=== PATIENT | female | born 1985 | race Caucasian/White ===

== ENCOUNTER 2019-01-11 15:20 | Inpatient (IN) | payer OTHER ==
[2019-01-11] VITALS (31 sets, daily range): BP systolic 103–156; BP diastolic 57–75
[~2019-01-11] VITALS: Ht 160 cm; Wt 82.5 kg
[2019-01-11] MEDS ORDERED: PRENTAB9 PO (15:43)
[2019-01-11] MEDS ORDERED: LACTATED RINGER'S 1000 ML IV STA (16:34)
[2019-01-11] MEDS ORDERED: LR 1,000 ML IV SCH (16:34)
[2019-01-11] MEDS ORDERED: PENICILLIN G POTASSIUM IV 5 MU in D5W MINI-BAG PLUS 100 ML IV STA (16:34)
--- NOTE | 2019-01-11 16:47 | HPEPDOC ---
Obstetrical History & Physical General Date of Admission Jan 11, 2019 at 16:33 History of Present Illness 33 y/o at 37+2 with LOF at 1100-noon this AM. Small amt fluid with mvmt /standing. No VB. Reg ctx's. Pos FM. Preg c/b AMA, Rh Neg (rhogam at 32 wks), h/o macrosomia 2013 9 lb 9 oz. Chief Complaint: Contractions, term, LOF, term Information Provided By: Patient Care Care: Good Care Dating Final EDC by: LMP, 1st trimester (US) Past Medical History Past Obstetrical History : Past Obstetrical History: Multigravida ( X3, 7 lb 11 oz 2000, 8 lb 7 oz 2007, 9 lb 9 oz 2013) Type of Delivery: Spontaneous Vaginal Del. (x3, no problems with all 3) SENIOR SUPPORT ENGINEER History: No pertinent history Past Medical History Surgical History: [place]ckley teeth Family History Significant Family History: No pertinent family hx Social History Marital Status: Family situation: Spouse/partner deployed Psychosocial History: No pertinent psych hx * Smoker: non-smoker Alcohol: Denies Drugs: denies Abuse Violence Screening Have you been hit/kicked/slapp: No Have you been sexually assault: No Imunizations Tdap status: current Influenza Status: current Allergies Coded Allergies: No Known Allergies (Unverified , 01/11/19) Medications Scheduled Multivitamins/ ( 27-0.8 mg) 1 Tab Tab, 1 TAB PO DAILY Physical Examination Physical Examination GENERAL: Alert and oriented times three. ABDOMEN: Gravid and non-tender to touch. EFW 8.5-9 lbs FETUS: Is vertex (VTX) by sterile vaginal examination (SVE), /-2 at 1630, large gush with cx check, clear amniotic fluid EXTREMITIES: No edema. Vital Signs/I&O Vital Signs Date Time Temp Pulse Resp B/P (MAP) Pulse Ox O2 Delivery O2 Flow Rate FiO2 01/11/19 15:41 98.2 90 18 124/75 (91) Laboratory Data Urine Culture: No Growth Pertinent Laboratoy Data Blood Type: O- RBC Antibody Screen: Negative HIV: Negative Hepatitis B: Negative Hepatitis C: Unknown Rapid Plasma Reagin: Nonreactive Rubella: Immune Varicella: Immune Chlamydia/Gonorrhea: Negative Group B Streptococcus: Positive Quad Screen Test: Declined Cystic Fibrosis: Negative Glucose Tolerance Test: 128 Anatomy Ultrasound Placenta Location: Anterior Normal Anatomy: Yes Placenta Previa: No Assessment Variability: Moderate Accelerations: Positive Decelerations: Variable (x1) Tocometer Contractions: Yes Frequency: regular Duration: greater than 60 seconds Strength: palpated as moderate Assessment/Plan Assessment SROM with GBS pos. Plan Admit and orient. Audio Specialist and consent. Diet: clears Group B Streptococcus (GBS) pos, PCN 5/2.5 Labs and intravenous (IV) per unit protocol. Counseled on Pitocin as needed Lactated Ringers (LR): Bolus 1000 mL, then at 125 mL/hr. Anticipate normal spontaneous delivery () C-S as appropriate. Sessions MD BEAL,ANATOLIY Tang MD Jan 11, 2019 16:47
[2019-01-11 17:00] LABS: HEMATOCRIT 40.8 % (36.0-47.0); MEAN CORPUSCULAR HEMOGLOBIN 31.5 pg (27.0-33.0); MEAN CORPUSCULAR HGB CONC 34.3 g/dl (32.0-36.5); MEAN CORPUSCULAR VOLUME 91.9 fl (80.0-96.0); PLATELET COUNT, AUTOMATED 153 10^3/uL (150-450); RED BLOOD COUNT 4.44 10^6/uL (4.00-5.40); WHITE BLOOD COUNT 14.3 10^3/uL (4.0-10.0)
[2019-01-11] MEDS ORDERED: FENTANYL 2MCG/ML ROPIVACAINE 0.2% IN 0.9% NACL 100ML IVBAG As Ordered ONE (17:52)
[2019-01-11] MEDS ORDERED: EPIDURAL/PCA KEYS XX PRN (18:45)
[2019-01-11] MEDS ORDERED: NALOXONE INJ 0.4 MG/1 ML VIAL (J2310) IV PRN (18:45)
[2019-01-11] MEDS ORDERED: FENTANYL/ROPIVACAINE/NACL BAG 100 ML EPIDURAL SCH (18:45)
[2019-01-11] MEDS ORDERED: EPIDURAL COMMENT XX SCH (18:45)
[2019-01-11] MEDS ORDERED: LACTATED RINGER'S 1000 ML IV PRN (18:45)
[2019-01-11] MEDS ORDERED: REFRIGERATOR IV KEYS XX PRN (18:45)
[2019-01-11] MEDS ORDERED: ePHEDrine SULFATE 25 MG/5 ML(5MG/ML) SYRINGE IV PRN (18:45)
[2019-01-11] MEDS ORDERED: ONDANSETRON 4MG/2ML VIAL (J2405) IV PRN (18:45)
[2019-01-11] MEDS ORDERED: diphenhydrAMINE INJ 50MG/ML VIAL (J1200) IV PRN (18:45)
[2019-01-11] MEDS ORDERED: PENICILLIN G POTASSIUM IV 2.5 MU in APPROPRIATE DILUENT 1 EA IV SCH (21:00)
[2019-01-11] MEDS ORDERED: OXYTOCIN 30 UNITS IN 0.9% NaCl 500ML IV BAG (J2590) As Ordered ONE (22:08)
[2019-01-11] MEDS ORDERED: OXYTOCIN DRIP 30 UNITS in APPROPRIATE DILUENT 1 EA IV SCH (22:35)
--- NOTE | 2019-01-11 22:43 | DNPDOC ---
[facility] Delivery Note Delivery Note DATE OF DELIVERY: 01/11/2019 PREDELIVERY DIAGNOSIS: 37w5d SROM POST DELIVERY DIAGNOSIS: Delivered. PROCEDURE: Spontaneous vaginal delivery AUDIOVISUAL AIDS TECHNICIAN: Dr. Analy MD ANESTHESIA: epidural ESTIMATED BLOOD LOSS: 250 mL. FINDINGS: 8 pound 0 ounce (3620g) male infant, Score 9/9 DELIVERY SUMMARY: Erika is a 33yo [id number] s/p uncomplicated at 37w5d after presenting with SROM earlier in the afternoon, delivering at 22:16 on 01/11/19. She was admitted at 3cm, progressed without need for any pitocin, received an epidural, and at C/C/0 began pushing. With two sets of pushes, head delivered OA, restituted WATSON. Left anterior shoulder delivered followed by posterior shoulder and corpus. immediately had spontaneous cry and vigorous, placed on maternal abdomen, nose and mouth suctioned with bulb suction, apgars 9/9. Inspection of perineum revealed very small left labial abrasion- one suture placed with 3-0 vicryl to reapproximate with hemostasis noted. Umbilical cord clamped x2 and cut, cord blood obtained for MBT O negative. With fundal massage and traction on the cord, placenta delivered spontaneously and intact with 3 vessel centrally inserted cord. Bimanual massage performed and IV pitocin given per protocol, fundus then firm at u-2cm with hemostasis. 800mcg cytotec placed rectally for prophylaxis. All counts correct x2. Mom and infant were doing well when I left the room. MD Analy Rosario Katrina D MD Jan 11, 2019 22:43
[2019-01-11] MEDS ORDERED: DIBUCAINE 1% OINTMENT 30GM TOP PRN (22:45)
[2019-01-11] MEDS ORDERED: MEASLES,MUMPS,RUBELLA VACCINE INJ (MMR-II) (90707) SC SCH (22:45)
[2019-01-11] MEDS ORDERED: RHOGAM 300 MCG (1500 IU) INJ (J2790) IM SCH (22:45)
[2019-01-11] MEDS ORDERED: DOCUSATE SODIUM 100 MG CAP PO PRN (22:45)
[2019-01-11] MEDS ORDERED: ACETAMINOPHEN 500 MG TAB PO PRN (22:45)
[2019-01-11] MEDS ORDERED: miSOPROStol 200 MCG TAB (S0191) PR ONE (22:45)
[2019-01-12 01:05] VITALS: BP 110/58
[2019-01-12 05:50] VITALS: BP 110/58
--- NOTE | 2019-01-12 07:20 | IPNPDOC ---
Progress Note Date of Service: Jan 12, 2019 Day#: 1 Progress Note PPD 1 SUBJECT: Erika is a 33yo [id number] s/p uncomplicated at 37w5d after presenting with SROM earlier in the afternoon, delivering at 22:16 on 01/11/19 doing well day # 1. She has been ambulating, voiding spontaneously without issue and tolerating regular diet. Breast feeding without issue. Reports lochia is like a normal period. Notes cramping- especially with nursing, has not yet had any motrin. No f/c/n/v/CP/SOB. OBJECTIVE: VITAL SIGNS: Within normal limits, afebrile. Alert and oriented times three. Abdomen: Fundus firm at U-2. Soft, NTTP. Extremities: no pain with palpation of calves ASSESSMENT: Erika is a 33yo [id number] s/p uncomplicated at 37w5d after presenting with SROM earlier in the afternoon, delivering at 22:16 on 01/11/19 doing well day # 1. Vitals within normal limits, afebrile, hemodynamically stable with no evidence of infection. PLAN: 1. Routine care 2. Tylenol and Motrin for pain. 3. Encourage breast feeding and ambulation. 4. Regular diet 5. no need for contraception yet with deployed 6. Likely discharge home tomorrow if meeting all milestones Dr. Qiana Beckford MD VS, I&O, 24H, Emmanuel Vital Signs/I&O Vital Signs Date Time Temp Pulse Resp B/P (MAP) Pulse Ox O2 Delivery O2 Flow Rate FiO2 01/12/19 05:50 98.2 89 16 110/58 (75) I&O- Last 24 Hours up to 6 AM 01/12/19 06:00 Intake Total 500 ml Output Total 1050 ml Balance -550 ml Laboratory Data 24H LABS Laboratory Tests 2 01/11/19 16:42: Nucleated Red Blood Cells % (auto) 0.0, Syphilis Serology NONREACTIVE 01/11/19 17:10: Serology Scanned Report Hepatitis B Testing CBC/BMP Laboratory Tests 01/11/19 16:42 Red Blood Count 4.44, Mean Corpuscular Volume 91.9, Mean Corpuscular Hemoglobin 31.5, Mean Corpuscular Hemoglobin Concent 34.3, Red Cell Distribution Width 14.2 Qiana Beckford MD Jan 12, 2019 07:20
[2019-01-12] MEDS: IBUPROFEN 800 MG TAB PO PRN ×2 (08:29→18:10)
[2019-01-12] MEDS: PRENATAL VITAMINS CHEWABLE TABLET PO SCH (08:29)
[2019-01-12 18:00] VITALS: BP 123/75
[2019-01-13] MEDS: IBUPROFEN 800 MG TAB PO PRN (05:06)
[2019-01-13 05:58] VITALS: BP 112/62
--- NOTE | 2019-01-13 07:34 | IPNPDOC ---
Text Note Date of Service The patient was seen on 01/13/19. NOTE PPD2 States feeling well, pain controlled with prescribed meds. Baby bonding and feeding well. No heavy VB. Lochia slowing. Ambulatory. Tolerating PO without issues. Voiding spont. No CP/LP/SOB. VSSAF NAD A&O LE no C/C/E Ut at U-2, firm a/p: Doing well. Cont routine care. D/C today. Sessions VSEmmanuel, I+O VSEmmanuel, I+O Vital Signs Date Time Temp Pulse Resp B/P (MAP) Pulse Ox O2 Delivery O2 Flow Rate FiO2 01/13/19 05:58 97.2 77 18 112/62 (79) 97 SESSIONS,ANATOLIY Tang MD Jan 13, 2019 07:34
--- NOTE | 2019-01-13 07:35 | DS.PDOC ---
Discharge Summary General Date of Admission Jan 11, 2019 at 16:33 Date of Discharge [id number] Discharge Summary ADMITTING DIAGNOSES: Active labor, SROM DISCHARGE DIAGNOSES: Same, HOSPITAL COURSE: Admitted and delivery uncomplicated, . course uncomplicated. DISCHARGE MEDICATIONS: Motrin, Lanolin DISCHARGE INSTRUCTIONS: Nothing in the vagina for 6 weeks. F/U in OBGYN clinic in 6-8 weeks. Sessions Vital Signs/I&Os Vital Signs Date Time Temp Pulse Resp B/P (MAP) Pulse Ox O2 Delivery O2 Flow Rate FiO2 01/13/19 05:58 97.2 77 18 112/62 (79) 97 Discharge Medications Scheduled Multivitamins/ ( 27-0.8 mg) 1 Tab Tab, 1 TAB PO DAILY, (Reported) Allergies Coded Allergies: No Known Allergies (Unverified , 01/11/19) SESSIONS,ANATOLIY aTng MD Jan 13, 2019 07:35
[2019-01-13] MEDS: PRENATAL VITAMINS CHEWABLE TABLET PO SCH (08:33)
[2019-01-13] MEDS ORDERED: MAPA500T2 PO (10:01)
[2019-01-13] MEDS ORDERED: IBUP-1114 PO (10:02)
[2019-01-13] MEDS ORDERED: COLA100C5 PO (10:03)
== END 2019-01-13 13:30 | disposition home or self-care (01) | DRG 807 ==
LOC: M LDO 15:20 → M LDI 16:33 → M OBS 01-12 00:50
PROVIDERS: ADMIT Obstetrics & Gynecology; ATTEND Obstetrics & Gynecology
PROC: 10E0XZZ Delivery of Products of Conception, External Approach (ICD-10-PCS; principal; 2019-01-11)
DX: O99.824 Streptococcus B carrier state complicating childbirth (principal); Z37.0 Single live birth; Z3A.37 37 weeks gestation of pregnancy